=== PATIENT | female | born 1980 | race Hispanic/Latino ===

== ENCOUNTER 2022-12-16 16:21 | Emergency (ER) | payer OTHER ==
[~2022-12-16] VITALS: Ht 154.9 cm; Wt 89.8 kg
[2022-12-16 17:18] LABS: BASOPHILS % (AUTO) 0.2 % (0.0-5.0); EOSINOPHILS % (AUTO) 3.1 % (0.0-8.0); HEMATOCRIT 41.1 % (36-48); LYMPHOCYTES % (AUTO) 27.6 % (21.0-51.0); MEAN CORPUSCULAR HEMOGLOBIN 25.4 pg (27.0-33.0); MEAN CORPUSCULAR HGB CONC 32.6 g/dL (32.0-36.0); MEAN CORPUSCULAR VOLUME 77.8 fL (79-99); NEUTROPHILS % (AUTO) 58.9 % (40.0-77.0); PLATELET COUNT (AUTO) 238 K/uL (130-400); RED BLOOD CELL COUNT(AUTO) 5.28 MIL/uL (4.00-5.50); RED CELL DISTRIBUTION WIDTH 14.1 % (11.0-15.5); WHITE BLOOD COUNT (AUTO) 4.2 K/uL (4.8-10.8)
[2022-12-16 17:49] LABS: CREATININE 0.8 mg/dL (0.5-1.5); POTASSIUM 3.4 mmol/L (3.5-5.1)
[2022-12-16 17:53] LABS: TOTAL PROTEIN, SERUM 7.2 g/dL (6.0-8.3)
[2022-12-16] MEDS ORDERED: 0.9%NACL 1000ML 1,000 ML IV ONE (18:30)
[2022-12-16] MEDS ORDERED: INSULIN HUMULIN R 100 UNIT/ML 3ML IV ONE (18:30)
[2022-12-16 19:55] VITALS: BP 128/74
== END 2022-12-16 19:57 | disposition home or self-care (01) ==
LOC: EDH 16:21
DX: E11.65 Type 2 diabetes mellitus with hyperglycemia (principal); Z79.84 Long term (current) use of oral hypoglycemic drugs
CPT/HCPCS: 99283; 96374; 96361; 80053; 85025; 82010; 36415; J1815; J7030

== ENCOUNTER 2022-12-20 20:28 | Emergency (ER) | payer OTHER ==
[~2022-12-20] VITALS: Ht 154.9 cm; Wt 88.9 kg
[2022-12-20 20:32] VITALS: BP 156/94
[2022-12-20] MEDS ORDERED: KETOROLAC 30MG VIAL (30MG/ML) IM ONE (21:00)
[2022-12-20] MEDS ORDERED: LORA10TA7 PO (21:02)
[2022-12-20] MEDS ORDERED: FLUT16H NASAL (21:02)
[2022-12-20] MEDS ORDERED: AZIT250T9 PO (21:02)
== END 2022-12-20 21:28 | disposition home or self-care (01) ==
LOC: EDH 20:28
DX: J01.90 Acute sinusitis, unspecified (principal)
CPT/HCPCS: 99283; 96372; J1885

== ENCOUNTER 2024-05-10 10:04 | Emergency (ER) | payer BC ==
[~2024-05-10] VITALS: Ht 154.9 cm; Wt 76.2 kg
[~2024-05-10 10:04] MED LIST: AZIT250T9 PO; FLUT16H NASAL; LORA10TA7 PO
[2024-05-10 10:41] LABS: BASOPHILS # (AUTO) 0.02 K/uL (0.00-0.20); BASOPHILS % (AUTO) 0.4 % (0.0-5.0); EOSINOPHILS # (AUTO) 0.08 K/uL (0.00-0.70); EOSINOPHILS % (AUTO) 1.6 % (0.0-8.0); IMMATURE GRANULOCYTE ABSOLUTE 0.01 K/uL (0-1); LYMPHOCYTES # (AUTO) 1.7 K/uL (1.0-4.8); LYMPHOCYTES % (AUTO) 32.7 % (21.0-51.0); MEAN CORPUSCULAR HEMOGLOBIN 24.6 pg (27.0-33.0); MEAN CORPUSCULAR HGB CONC 31.2 g/dL (32.0-36.0); MEAN CORPUSCULAR VOLUME 78.8 fL (79-99); MONOCYTES # (AUTO) 0.5 K/uL (0.1-1.0); MONOCYTES % (AUTO) 9.1 % (3.0-13.0); NEUTROPHILS # (AUTO) 2.8 K/uL (1.8-7.7); PLATELET COUNT (AUTO) 268 K/uL (130-400); RED BLOOD CELL COUNT(AUTO) 5.33 MIL/uL (4.00-5.50); RED CELL DISTRIBUTION WIDTH 14.1 % (11.0-15.5); WHITE BLOOD COUNT (AUTO) 5.1 K/uL (4.8-10.8)
[2024-05-10 10:47] LABS: CREATININE 0.7 mg/dL (0.5-1.0); POTASSIUM 3.6 mmol/L (3.5-5.1)
[2024-05-10 10:59] LABS: APPEARANCE,URINE CLEAR (CLEAR); BILIRUBIN,URINE NEGATIVE (NEGATIVE); COLOR,URINE LIGHT-YELLOW (YELLOW); GLUCOSE, URINE (UA) NEGATIVE (NEGATIVE); KETONES,URINE NEGATIVE (NEGATIVE); LEUKOCYTE ESTERASE ,URINE 75 Leu/uL (NEGATIVE); NITRATE,URINE NEGATIVE (NEGATIVE); OCCULT BLOOD,URINE NEGATIVE (NEGATIVE); PROTEIN,URINE NEGATIVE (NEGATIVE); UROBILINOGEN,URINE 0.2 mg/dL (0.2-1.0)
[2024-05-10 11:05] LABS: INR <= 0.93 (0.85-1.15); PROTHROMBIN TIME 10.2 SEC (9.6-11.6)
[2024-05-10 11:07] LABS: PARTIAL THROMBOPLASTIN TIME 26.2 SEC (26.3-35.5)
[2024-05-10 11:09] LABS: ADD UA MICROSCOPIC YES
[2024-05-10 11:12] LABS: MUCUS,URINE RARE LPF (None Seen); RBC,URINE 0-1 /HPF (0-1); RENAL EPITHELIAL CELLS,URINE RARE /HPF (None Seen); SQUAMOUS EPITHELIAL CELL,UR RARE /HPF (0-2)
[2024-05-10 11:32] LABS: B-TYPE NATRIURETIC PEPTIDE 10 pg/mL (0-100)
[2024-05-10 12:23] VITALS: BP 154/74; PULSE 62; RESP 20; O2SAT 100
[2024-05-10] MEDS ORDERED: CALC0.253 PO (12:53)
[2024-05-10] MEDS ORDERED: [UNRECOGNIZED DRUG - CODE] PO (12:53)
[2024-05-10] MEDS ORDERED: PRED50TA2 PO (15:22)
[2024-05-10] MEDS ORDERED: CYCL10TA16 PO (15:22)
== END 2024-05-10 13:01 | disposition home or self-care (01) ==
LOC: EDH 10:04
DX: R20.2 Paresthesia of skin (principal); M54.10 Radiculopathy, site unspecified
CPT/HCPCS: 36415; 70450; 71045; 80048; 81001; 82550; 83721; 83735; 83880; 84484; 85025; 85610; 85730; 87088; 93005

== ENCOUNTER 2025-02-03 10:11 | Emergency (ER) | payer BC ==
[~2025-02-03] VITALS: Ht 154.9 cm; Wt 81.6 kg
[~2025-02-03 10:11] MED LIST changes: +CALC0.253 PO; +CYCL10TA16 PO; +PRED50TA2 PO; +[UNRECOGNIZED DRUG - CODE] PO
--- NOTE | 2025-02-03 11:08 | ERN ---
General Stated Complaint: VOMITING Time Seen by MD: 10:12 Time Seen by Midlevel: 10:12 Source: patient History of Present Illness Initial Comments Patient is a 44-year-old female with a past medical history of type 2 diabetes presenting to the emergency department with midepigastric abdominal pain with associated nausea and vomiting. The patient reports previously being on Ozempic 2 mg but stopped taking it for approximately six months. Two days ago she was told by her doctor that she could resume Ozempic and was started on the higher dose of 2 mg. For the last 48 hours patient has been having multiple episodes of vomiting along with muscle cramping. Allergies: Coded Allergies: No Known Allergies (Unverified Allergy, Unknown, 12/16/22) Home Meds Active Scripts Prednisone (Prednisone) 50 Mg Tablet, 50 MG PO DAILY for 5 Days, #5 TAB 0 Refills Prov:RADHA RIOS MD 05/10/24 Cyclobenzaprine HCl (Flexeril) 10 Mg Tab, 10 MG PO TID for muscle sstiffness, #30 TAB 0 Refills Prov:RADHA RIOS MD 05/10/24 Calcium Gluconate (Calcium Gluconate) 50 Mg Calcium Capsule, 50 MG PO BID for 7 Days, #14 CAP Prov:PAUL BUSH 05/10/24 Calcitriol (Calcitriol) 0.25 Mcg Capsule, 0.25 MCG PO BID for 7 Days, #14 CAP Prov:PAUL BUSH 05/10/24 Loratadine (Loratadine) 10 Mg Tablet, 10 MG PO DAILY for 7 Days, #7 TAB Prov:SUSAN PEREA 12/20/22 Fluticasone Propionate (Flonase Nasal [place]) 50 Mcg/[place], 50 MCG NASAL DAILY for 7 Days, #1 BOTTLE Prov:SUSAN PEREA 12/20/22 Azithromycin (Azithromycin) 250 Mg Tablet, 250 MG PO DAILY for 5 Days, #6 TAB Take 2 now then 1 daily until complete. Prov:SUSAN PEREA 12/20/22 Past Medical History Past Medical History: No Pertinent History Past Surgical History: None Social History Social History: Negative ROS Dictation CONSTITUTIONAL: Negative except for HPI HEAD/FACE: Negative except for HPI EENT: Negative except for HPI RESPIRATORY: Negative except for HPI GASTROINTESTINAL/ABDOMINAL: Negative except for HPI GENITOURINARY: Negative except for HPI MUSCULOSKELETAL: Negative except for HPI INTEGUMENTARY: Negative except for HPI NEUROLOGICAL/PSYCH: Negative except for HPI HEMATOLOGIC/LYMPHATIC: Negative except for HPI All Systems Negative, Except as noted above. 13 point review of systems assessed and all negative except for above. Physical Exam Physical Exam Dictation Vital Signs reviewed General Appearance: Alert, oriented x 3, no acute distress, well developed, nourished. Head and Face: non-traumatic. Eyes: PERRL, pink conjunctivas, eyelid no trauma, anterior chamber with arcus senilis. Ears: Pinnas intact and no signs of trauma or erythema ear canals clear and no discharge TM no erythema Nose: No discharge, no bleeding. Oropharynx: Mouth normal, tongue pink, pharynx clear,no erythema, tonsils no exudates, no abscesses noted, mucous membrane moist Neck: Supple, non-tender, no thyromegaly, no masses, no JVD, no bruits Breast:Deferred Chest:No tenderness, no crepitus, no paradoxical movement, no retractions Lungs:Clear, well-ventilated, symmetric, no rales, no wheezing, no rhonchi, no stridor, good breath sounds bilaterally Heart: Regular rate, regular rhythm, no murmur, no gallops Vascular: no peripheral edema, Abdomen: Soft, positive bowel sounds, nondistended, no guarding, nontender, no rebound, no masses no hepatomegaly, no splenomegaly, no Shelton's sign, no hernias. Rectal: Deferred Genital: Deferred Neurological: Normal speech, motor function intact, sensory function intact Musculoskeletal: Neck nontender, full range of motion, back nontender, full range of motion, Extremities: nontender, full range of motion Skin: Color pink, dry, no turgor, no rash, no lacerations, no abrasions, no contusions. Lymphatic: Deferred Results Laboratory and Microbiology Lab and Micro Result Laboratory Tests Test 02/03/25 11:25 02/03/25 11:26 Whole Blood Glucose 126 MG/DL (70-110) H Bedside Glucose Comment Notified Nurse White Blood Count 8.0 K/uL (4.8-10.8) Red Blood Count 5.58 MIL/uL (4.00-5.50) H Hemoglobin 13.6 g/dL (12.0-16.0) Hematocrit 43.3 % (36-48) Mean Corpuscular Volume 77.6 fL (79-99) L Mean Corpuscular Hemoglobin 24.4 pg (27.0-33.0) L Mean Corpuscular Hemoglobin Concent 31.4 g/dL (32.0-36.0) L Red Cell Distribution Width 15.9 % (11.0-15.5) H Platelet Count 345 K/uL (130-400) Mean Platelet Volume 8.5 fL (7.5-10.5) Immature Granulocyte % (Auto) 0.4 % (0-1) Neutrophils (%) (Auto) 63.9 % (40.0-77.0) Lymphocytes (%) (Auto) 25.8 % (21.0-51.0) Monocytes (%) (Auto) 9.3 % (3.0-13.0) Eosinophils (%) (Auto) 0.3 % (0.0-8.0) Basophils (%) (Auto) 0.3 % (0.0-5.0) Neutrophils # (Auto) 5.1 K/uL (1.8-7.7) Lymphocytes # (Auto) 2.1 K/uL (1.0-4.8) Monocytes # (Auto) 0.7 K/uL (0.1-1.0) Eosinophils # (Auto) 0.02 K/uL (0.00-0.70) Basophils # (Auto) 0.02 K/uL (0.00-0.20) Absolute Immature Granulocyte (auto 0.03 K/uL (0-1) Nucleated Red Blood Cells 0.0 % (0.0-0.19) Sodium Level 135 mmol/L (136-145) L Potassium Level 3.2 mmol/L (3.5-5.1) L Chloride Level 98 mmol/L (101-111) L Carbon Dioxide Level 32 mmol/L (21-32) Blood Urea Nitrogen 16 mg/dL (7-18) Creatinine 0.8 mg/dL (0.5-1.0) Glomerular Filtration Rate Calc 92 mL/min (>90) Random Glucose 121 mg/dL (70-105) H Total Calcium 8.7 mg/dL (8.5-10.1) Total Bilirubin 1.1 mg/dL (0.2-1.0) H Direct Bilirubin 0.2 mg/dL (0.0-0.3) Aspartate Amino Transf (AST/SGOT) 19 U/L (10-37) Alanine Aminotransferase (ALT/SGPT) 23 U/L (12-78) Alkaline Phosphatase 73 U/L (50-136) Total Protein 8.2 g/dL (6.0-8.3) Albumin 3.6 g/dL (3.5-5.0) Lipase 19 U/L (16-77) Serum Test, Qualitative NEGATIVE (NEGATIVE) Labs Reviewed?: Yes MDM MDM: Patient is a 44-year-old female with a past medical history of type 2 diabetes presenting to the emergency department with midepigastric abdominal pain with associated nausea and vomiting. The patient reports previously being on Ozempic 2 mg but stopped taking it for approximately six months. Two days ago she was told by her doctor that she could resume Ozempic and was started on the higher dose of 2 mg. For the last 48 hours patient has been having multiple episodes of vomiting along with muscle cramping. On physical examination the patient is in no acute distress. Abdominal examination is stable. Vital signs are stable. CBC shows no leukocytosis. Chemistries reveal a potassium of 3.2 and a chloride of 98 consistent with dehydration. The patient was offered p.o. potassium but refused stating that she believes she may become nauseous and throw up. The remainder of her chemistries are unremarkable. Patient was given IV fluids, Zofran, Pepcid, and Reglan and reports feeling improved. Differential diagnosis: Pancreatitis, acute cholecystitis, dehydration, electrolyte abnormality There are no social concerns with this patient. Prescription drug management Prescriptions will include: Medical management and examination interpretation discussions were had by me with other qualified healthcare professionals as indicated for the patient's care. ED Course Orders Procedure Category Date Status Time Cbc With Differential LAB 02/03/25 In Process 10:59 Basic Metabolic Panel LAB 02/03/25 Complete 10:59 Hepatic Function Panel LAB 02/03/25 Complete 10:59 Lipase LAB 02/03/25 Complete 10:59 Testing, LAB 02/03/25 Complete Serum Hcg 10:59 Ondansetron 4mg Inj PHA 02/03/25 Complete (Zofran 4mg Inj) 11:00 Famotidine 20mg Vial PHA 02/03/25 Complete (Pepcid 20mg Vial) 11:00 0.9%Nacl 1000ml (Ns PHA 02/03/25 Complete 1000ml) 11:00 Metoclopramide 10 PHA 02/03/25 Complete Mg/2 Ml Vial (Reglan 1 11:30 Current Medications Medications (Trade) Dose Ordered Sig/Starr Route PRN Reason Start Time Stop Time Status Last Admin Dose Admin Famotidine (Pepcid 20mg Vial) 20 mg ONCE ONCE IV 02/03/25 11:00 02/03/25 11:03 DC 02/03/25 11:27 Metoclopramide HCl (regLAN 10MG IV) 5 mg ONCE ONCE IVP 02/03/25 11:30 02/03/25 11:31 DC 02/03/25 11:28 Ondansetron HCl (zoFRAN 4MG INJ) 4 mg ONCE ONCE IVP 02/03/25 11:00 02/03/25 11:03 DC 02/03/25 11:27 Sodium Chloride 1,000 ml @ 0 mls/hr ONCE ONCE IV 02/03/25 11:00 02/03/25 11:03 DC 02/03/25 11:27 Vital Signs Date Time Temp Pulse Resp B/P (MAP) Pulse Ox O2 Delivery O2 Flow Rate FiO2 02/03/25 11:16 98.8 18 16 138/73 97 Room Air 0 DX & DISP Disposition: Discharge Departure Impression: Primary Impression: Medication side effect Additional Impressions: Dehydration, Hypokalemia Condition: Stable Additional Instructions: Your blood work today is stable. There was no evidence of pancreatitis. Your symptoms are most likely being caused with a high dosage of Ozempic you were administered two days ago. Please follow up with your primary care doctor in 2-3 days for repeat evaluation. I recommend you decrease the dose of your Ozempic so your body can adjust since you have not been taking his medication for months. Return to the ER if you develop any new or worsening symptoms Referrals: OLLIE MCMAHON Jr., MD (PCP) Time of Disposition: 12:20 I have reviewed the case, and I agree with, Diagnosis and Plan I performed the substantive portion of the visit. I have reviewed and personally made and approve the management plan that is documented in the note by myself or the YESENIA. I acknowledge for responsibility for the patient's management plan. PAUL BUSH Feb 03, 2025 11:08
[2025-02-03 11:16] VITALS: TEMP 98.8
[2025-02-03] MEDS: ondanSETRON 4MG INJ IVP ONE (11:27)
[2025-02-03] MEDS: 0.9%NACL 1000ML 1,000 ML IV ONE (11:27)
[2025-02-03] MEDS: FAMOTIDINE 20MG VIAL IV ONE (11:27)
[2025-02-03] MEDS: metoCLOPRAmide 10 MG/2 ML VIAL IVP ONE (11:28)
[2025-02-03 11:45] LABS: BASOPHILS # (AUTO) 0.02 K/uL (0.00-0.20); BASOPHILS % (AUTO) 0.3 % (0.0-5.0); EOSINOPHILS # (AUTO) 0.02 K/uL (0.00-0.70); EOSINOPHILS % (AUTO) 0.3 % (0.0-8.0); HEMATOCRIT 43.3 % (36-48); IMMATURE GRANULOCYTE ABSOLUTE 0.03 K/uL (0-1); LYMPHOCYTES # (AUTO) 2.1 K/uL (1.0-4.8); LYMPHOCYTES % (AUTO) 25.8 % (21.0-51.0); MEAN CORPUSCULAR HEMOGLOBIN 24.4 pg (27.0-33.0); MEAN CORPUSCULAR HGB CONC 31.4 g/dL (32.0-36.0); MEAN CORPUSCULAR VOLUME 77.6 fL (79-99); MONOCYTES # (AUTO) 0.7 K/uL (0.1-1.0); MONOCYTES % (AUTO) 9.3 % (3.0-13.0); NEUTROPHILS # (AUTO) 5.1 K/uL (1.8-7.7); NEUTROPHILS % (AUTO) 63.9 % (40.0-77.0); PLATELET COUNT (AUTO) 345 K/uL (130-400); RED BLOOD CELL COUNT(AUTO) 5.58 MIL/uL (4.00-5.50); RED CELL DISTRIBUTION WIDTH 15.9 % (11.0-15.5)
[2025-02-03 12:00] LABS: CREATININE 0.8 mg/dL (0.5-1.0); POTASSIUM 3.2 mmol/L (3.5-5.1)
[2025-02-03 12:04] LABS: ALBUMIN 3.6 g/dL (3.5-5.0); BILIRUBIN,DIRECT 0.2 mg/dL (0.0-0.3); BILIRUBIN,TOTAL 1.1 mg/dL (0.2-1.0); TOTAL PROTEIN, SERUM 8.2 g/dL (6.0-8.3)
[2025-02-03 12:36] VITALS: BP 138/36; PULSE 82; RESP 16; O2SAT 97
== END 2025-02-03 13:14 | disposition home or self-care (01) ==
LOC: EDH 10:11
DX: E86.0 Dehydration (principal); E87.6 Hypokalemia; T50.905A Adverse effect of unspecified drugs, medicaments and biological substances, initial encounter; E11.9 Type 2 diabetes mellitus without complications; Z79.52 Long term (current) use of systemic steroids; Z79.85 Long-term (current) use of injectable non-insulin antidiabetic drugs; Z79.899 Other long term (current) drug therapy; Y92.89 Other specified places as the place of occurrence of the external cause
CPT/HCPCS: 99284; 96374; 96375; 80076; 80048; 84703; 83690; 85025; 82948; 36415; J3490; J7030; J2405; J2765

== ENCOUNTER 2025-10-17 19:55 | Emergency (ER) | payer BC ==
[~2025-10-17] VITALS: Ht 154.9 cm; Wt 84.8 kg
[2025-10-17 20:17] LABS: RAPID GROUP A STREP negative (NEGATIVE)
[2025-10-17 20:22] LABS: SARS-CoV-2, RNA, NAAT NEGATIVE SARS CoV-2 (NEGATIVE)
[2025-10-17 20:26] LABS: APPEARANCE,URINE CLEAR (CLEAR); GLUCOSE, URINE (UA) NEGATIVE (NEGATIVE); LEUKOCYTE ESTERASE ,URINE NEGATIVE Leu/uL (NEGATIVE); NITRATE,URINE NEGATIVE (NEGATIVE); OCCULT BLOOD,URINE NEGATIVE (NEGATIVE)
[2025-10-17 20:28] LABS: INFLUENZA TYPE A Negative For Type A (NEGATIVE); INFLUENZA TYPE B Negative For Type B (NEGATIVE)
[2025-10-17 20:29] LABS: ADD UA MICROSCOPIC YES
[2025-10-17 20:30] LABS: SQUAMOUS EPITHELIAL CELL,UR RARE /HPF (0-2)
--- NOTE | 2025-10-17 20:42 | ERN ---
General Chief Complaint: Abdominal Pain Stated Complaint: C/O ABD PAIN W/N X V W/HEADACHE Time Seen by MD: 19:59 Source: patient History of Present Illness Initial Comments Patient is a type 2 diabetic her has had congestion an upper respiratory tract symptoms for a week. She also has a headache for one week. She went to her primary care physician who nicol labs and saw that she was dehydrated and also prescribed her amoxicillin. Unfortunately, the patient has not been able to take the amoxicillin as she now has nausea and vomiting for the last two days. She has not checked her blood glucose levels for five days. The only other change in her condition is she increased her Mounjaro dosage up to 7.5 mg 48 hours ago. Allergies: Coded Allergies: No Known Allergies (Unverified Allergy, Unknown, 12/16/22) Home Meds Active Scripts Prednisone (Prednisone) 50 Mg Tablet, 50 MG PO DAILY for 5 Days, #5 TAB 0 Refills Prov:RADHA RIOS MD 05/10/24 Cyclobenzaprine HCl (Flexeril) 10 Mg Tab, 10 MG PO TID for muscle sstiffness, #30 TAB 0 Refills Prov:RADHA RIOS MD 05/10/24 Calcium Gluconate (Calcium Gluconate) 50 Mg Calcium Capsule, 50 MG PO BID for 7 Days, #14 CAP Prov:PAUL BUSH 05/10/24 Calcitriol (Calcitriol) 0.25 Mcg Capsule, 0.25 MCG PO BID for 7 Days, #14 CAP Prov:PAUL BUSH 05/10/24 Loratadine (Loratadine) 10 Mg Tablet, 10 MG PO DAILY for 7 Days, #7 TAB Prov:SUSAN PEREA 12/20/22 Fluticasone Propionate (Flonase Nasal [place]) 50 Mcg/[place], 50 MCG NASAL DAILY for 7 Days, #1 BOTTLE Prov:SUSAN PEREA 12/20/22 Azithromycin (Azithromycin) 250 Mg Tablet, 250 MG PO DAILY for 5 Days, #6 TAB Take 2 now then 1 daily until complete. Prov:SUSNA PEREA 12/20/22 Past Medical History Past Medical History: Diabetes-Type II Past Surgical History: None Social History Social History: Negative Female( History) LMP: Oct 03, 2025 Constitutional: (-) chills, (-) diaphoresis, (-) fever, (-) malaise, (-) weakness, (-) other documentation EENTM: (-) eye pain, (-) blurred vision, (-) tearing, (-) double vision, (-) ear pain, (-) ear discharge, (-) nose pain, (-) nose congestion, (-) throat pain, (-) Throat swelling, (-) mouth pain, (-) tooth pain, (-) mouth swelling, (-) other documentation Respiratory: (+) cough, (+) other documentation (Because of her coughing she has difficulty filling her lungs with a air as she feels muscular pain in her sternal region.) Gastrointestinal/Abdominal: (+) nausea, (+) vomiting Genitourinary: (-) vaginal discharge, (-) vaginal bleeding, (-) dysuria, (-) frequency, (-) hematuria, (-) pain, (-) other documentation Musculoskeletal: (-) Neck pain, (-) back pain, (-) Flank Pain, (-) joint pain, (-) joint swelling, (-) muscle pain, (-) muscle stiffness, (-) gout, (-) other documentation Skin: (-) laceration, (-) contusion, (-) abrasion, (-) abscess, (-) rash, (-) change in color, (-) change in hair, (-) change in nails, (-) diaphoresis, (-) dryness, (-) other documentation Neuro: (+) headache Physical Exam General Appearance: (+) mild distress Orientation: (+) alert, (+) oriented x 3 Head/Face Trauma: No Eye: bilateral eye normal inspection, bilateral eye PERRL, bilateral eye EOMI Ear, Nose, Throat: (+) hearing grossly normal, (+) normal ENT inspection, (+) moist mucous membraine Neck: (+) normal inspection, (+) supple, (+) full range of motion Respiratory: (+) chest non-tender, (+) lungs clear, (+) decreased breath sounds Heart: (+) regular, (+) no gallop Vascular: (+) no edema, (+) normal peripheral pulse Gastrointestinal: (+) soft, (+) non-tender, (+) bowel sound present Results Laboratory and Microbiology Lab and Micro Result Laboratory Tests Test 10/17/25 20:00 10/17/25 20:30 10/17/25 20:38 Urine Color YELLOW (YELLOW) Urine Appearance CLEAR (CLEAR) Urine pH 5.5 (5.0-8.0) Urine Specific [place] 1.032 (1.001-1.031) Urine Protein 10 mg/dL (NEGATIVE) H Urine Glucose (UA) NEGATIVE mg/dL (NEGATIVE) Urine Ketones NEGATIVE mg/dL (NEGATIVE) Urine Occult Blood NEGATIVE (NEGATIVE) Urine Nitrate NEGATIVE (NEGATIVE) Urine Bilirubin NEGATIVE mg/dL (NEGATIVE) Urine Urobilinogen 0.2 mg/dL (0.2-1.0) Urine Leukocyte Esterase NEGATIVE Andres/uL Urine RBC 2-5 /HPF (0-1) H Urine WBC 2-5 /HPF (0-1) H Urine Squamous Epithelial Cells RARE /HPF (0-2) Urine Bacteria None /HPF (None Seen) Urine HCG, Qualitative NEGATIVE (NEGATIVE) Influenza Type A Antigen Negative For Type A Influenza Type B Antigen Negative For Type B SARS-CoV-2, RNA, NAAT NEGATIVE SARS CoV-2 Group A Streptococcus Rapid negative (NEGATIVE) Sodium Level 136 mmol/L (136-145) Potassium Level 3.7 mmol/L (3.5-5.1) Chloride Level 101 mmol/L (101-111) Carbon Dioxide Level 29 mmol/L (21-32) Blood Urea Nitrogen 14 mg/dL (7-18) Creatinine 0.8 mg/dL (0.5-1.0) Glomerular Filtration Rate Calc 91 mL/min (>90) Random Glucose 156 mg/dL (70-105) H Total Calcium 8.4 mg/dL (8.5-10.1) L Total Bilirubin 0.6 mg/dL (0.2-1.0) Aspartate Amino Transf (AST/SGOT) 19 U/L (10-37) Alanine Aminotransferase (ALT/SGPT) 21 U/L (12-78) Alkaline Phosphatase 77 U/L (50-136) Total Protein 7.7 g/dL (6.0-8.3) Albumin 3.3 g/dL (3.5-5.0) L White Blood Count 6.0 K/uL (4.8-10.8) Red Blood Count 5.32 MIL/uL (4.00-5.50) Hemoglobin 13.0 g/dL (12.0-16.0) Hematocrit 41.8 % (36-48) Mean Corpuscular Volume 78.6 fL (79-99) L Mean Corpuscular Hemoglobin 24.4 pg (27.0-33.0) L Mean Corpuscular Hemoglobin Concent 31.1 g/dL (32.0-36.0) L Red Cell Distribution Width 15.6 % (11.0-15.5) H Platelet Count 288 K/uL (130-400) Mean Platelet Volume 8.7 fL (7.5-10.5) Immature Granulocyte % (Auto) 0.3 % (0-1) Neutrophils (%) (Auto) 61.6 % (40.0-77.0) Lymphocytes (%) (Auto) 26.4 % (21.0-51.0) Monocytes (%) (Auto) 10.1 % (3.0-13.0) Eosinophils (%) (Auto) 1.3 % (0.0-8.0) Basophils (%) (Auto) 0.3 % (0.0-5.0) Neutrophils # (Auto) 3.7 K/uL (1.8-7.7) Lymphocytes # (Auto) 1.6 K/uL (1.0-4.8) Monocytes # (Auto) 0.6 K/uL (0.1-1.0) Eosinophils # (Auto) 0.08 K/uL (0.00-0.70) Basophils # (Auto) 0.02 K/uL (0.00-0.20) Absolute Immature Granulocyte (auto 0.02 K/uL (0-1) Nucleated Red Blood Cells 0.0 % (0.0-0.19) Red Blood Cell Morphology See comments Labs Reviewed?: Yes EKG/XRAY/US/CT/MRI X-RAY Comment Chest x-ray is negative for infiltrates or pneumonia KUB is negative gastroparesis MDM MDM: Differential diagnosis: Gastroparesis, DKA, dehydration, URTI, Rationale: Tests considered and ordered secondary to shared decision making include: Previous outside records reviewed: Old ER visits. Risk of complication and/or morbidity or mortality of patient management: None Medications-Per medication reconciliation Need for hospitalization: Patient does meet criteria for hospitalization. Need for emergency major/minor surgery: No There are no social concerns with this patient. Prescription drug management Prescriptions will include symptomatic care Patient's prior external medical records from other ER visits were reviewed by me as indicated. Prior testing and results from previous visits were reviewed. Prior tests were taken into account with medical decision making and resource utilization, independent historian/historians were used to obtain complete medical history. I independently interpreted the test that were performed, results were reviewed by me and considered findings on radiology if ordered. ED Course Orders Procedure Category Date Status Time Urinalysis Profile LAB 10/17/25 Complete 20:03 Covid Rna Naat LAB 10/17/25 Complete 20:03 Influenza Type A & B, LAB 10/17/25 Complete Rapid 20:03 Rapid (Group A Strep) LAB 10/17/25 Complete 20:03 Lactated Ringers PHA 10/17/25 Complete 1000ml (Lactated 20:25 Ondansetron 4mg PHA 10/17/25 Complete Tablet (Zofran 4mg 20:30 Basic Metabolic Panel LAB 10/17/25 Complete 20:25 Comprehensive LAB 10/17/25 Complete Metabolic Panel 20:25 ,Urine Test LAB 10/17/25 Complete 20:25 Abd 1vw RAD 10/17/25 Resulted 20:25 Chest 1vw RAD 10/17/25 Resulted 20:42 Ondansetron 4mg Inj PHA 10/17/25 Complete (Zofran 4mg Inj) 21:30 Cbc With Differential LAB 10/17/25 Complete 21:25 Current Medications Medications (Trade) Dose Ordered Sig/Starr Route PRN Reason Start Time Stop Time Status Last Admin Dose Admin Lactated Ringer's (Lactated Ringers 1000ml) 1,000 ml BOLUS STAT IV 10/17/25 20:25 10/17/25 20:30 DC 10/17/25 21:28 Ondansetron HCl (zoFRAN 4MG TABLET) 4 mg ONCE ONCE PO 10/17/25 20:30 10/17/25 21:25 DC Ondansetron HCl (zoFRAN 4MG INJ) 4 mg ONCE ONCE IVP 10/17/25 21:30 10/17/25 21:31 DC 10/17/25 21:28 Vital Signs Date Time Temp Pulse Resp B/P (MAP) Pulse Ox O2 Delivery O2 Flow Rate FiO2 10/17/25 19:57 98.1 98 20 132/92 98 Room Air DX & DISP Disposition: Discharge Departure Impression: Primary Impression: Dehydration Additional Impression: Microcytic erythrocytes Condition: Stable Scripts Ondansetron (Ondansetron Odt) 4 Mg Tab.rapdis 1 TAB PO Q6HPRN PRN for nausea/vomiting for 4 Days, #16 TAB 0 Refills Prov: MAKEDA MCKEON MD 10/17/25 Additional Instructions: We did throat swabs and you do not have strep throat or COVID or influenza. You could still have some kind of a viral infection of your upper respiratory tract. Your white blood cells are normal. Your red blood cells are small possibly due to iron-deficiency. I recommend you talk to your primary care doctor about this. He may order iron studies and recommend taking iron tablets each night. Your urine analysis shows that your urine is very concentrated so I suspect that you were dehydrated. I will discharge you home with a prescription for Zofran to help with her nausea and vomiting. Drink plenty of fluids I recommend drinking enough fluids so that each day your urine runs clear at least once. The nausea and vomiting could be due to the dehydration or could be due to the increase in your Mounjaro dose. I recommend discussing this with your primary care physician and possibly going back to your prior dose of Mounjaro. Please come back to the emergency room if you find yourself still unable to keep any fluids down and you are concerned about becoming further dehydrated. Referrals: OLLIE MCMAHON Jr., MD (PCP) MAKEDA MCKEON MD Oct 17, 2025 20:42
[2025-10-17 20:49] LABS: CREATININE 0.8 mg/dL (0.5-1.0); GLOMERULAR FILTR. RATE CALC 91.0 mL/min (>90); GLUCOSE,RANDOM 156.0 mg/dL (70-105); SODIUM SERUM 136.0 mmol/L (136-145); UREA NITROGEN, BLOOD 14.0 mg/dL (7-18)
[2025-10-17 20:54] LABS: ASPARTATE AMINOTRANSFERASE 19.0 U/L (10-37); TOTAL PROTEIN, SERUM 7.7 g/dL (6.0-8.3)
[2025-10-17] MEDS: LACTATED RINGERS 1000ML IV STA (21:28)
[2025-10-17 21:31] LABS: IMMATURE GRANULOCYTE ABSOLUTE 0.02 K/uL (0-1); NUCLEATED RED BLOOD CELLS 0.0 % (0.0-0.19); PLATELET COUNT (AUTO) 288 K/uL (130-400); RED BLOOD CELL COUNT(AUTO) 5.32 MIL/uL (4.00-5.50); RED CELL DISTRIBUTION WIDTH 15.6 % (11.0-15.5); WHITE BLOOD COUNT (AUTO) 6.0 K/uL (4.8-10.8)
--- NOTE | 2025-10-17 21:54 | HMCIMG ---
EXAM: CR Chest, 1 View. CLINICAL HISTORY: SOB COMPARISON: None provided. FINDINGS: LUNGS: There is no mass, infiltrate, or acute pulmonary abnormality. PLEURAL SPACES: No pleural effusion or pneumothorax. MEDIASTINUM: The cardiomediastinal silhouette is within normal limits. BONES: No aggressive appearing osseous lesion seen. IMPRESSION: No acute cardiopulmonary pathology is evident. /[place]
--- NOTE | 2025-10-17 21:54 | HMCIMG ---
EXAM: CR Abdomen, 2 View. CLINICAL HISTORY: gastroparesis COMPARISON: None provided. FINDINGS: BOWEL: The bowel gas pattern is within normal limits. PERITONEUM/SOFT TISSUES: No free air evident. No pathologic appearing calcification. BONES: No aggressive appearing osseous lesion seen. IMPRESSION: The bowel gas pattern is within normal limits. /[place]
[2025-10-17] MEDS ORDERED: ONDA-243 PO (22:13)
[2025-10-17 22:46] VITALS: BP 129/87; PULSE 95; RESP 18; TEMP 98.4; O2SAT 99
== END 2025-10-17 22:30 | disposition home or self-care (01) ==
LOC: EDH 19:55
DX: E86.0 Dehydration (principal); D59.4 Other nonautoimmune hemolytic anemias; E11.9 Type 2 diabetes mellitus without complications; Z20.822 Contact with and (suspected) exposure to COVID-19; Z79.52 Long term (current) use of systemic steroids
CPT/HCPCS: 99284; 96374; 71045; 87635; 80053; 85025; 87880; 87804 ×2; 81001; 81025; 36415; 74018; J7120; J2405